=== PATIENT | female | born 1950 | race Two or more races ===

== ENCOUNTER 2021-08-29 06:10 | Day surgery (SDC) | payer OTHER | END 2021-08-29 11:30 | disposition home or self-care (01) | LOC: AMB-ENDOS 06:10 | PROVIDERS: ATTEND Colon & Rectal Surgery | DX: D12.2 Benign neoplasm of ascending colon (principal); D12.3 Benign neoplasm of transverse colon; Z86.010 Personal history of colon polyps; E78.5 Hyperlipidemia, unspecified; I10 Essential (primary) hypertension; Z91.041 Radiographic dye allergy status; Z20.822 Contact with and (suspected) exposure to COVID-19 ==

== ENCOUNTER → 2022-09-22 | Emergency (ER) | payer OTHER ==
[~2022-09-22] VITALS: Ht 180.3 cm; Wt 74.8 kg
[~2022-09-22] MED LIST: COZAAR25 MG PO; HYDROCHLOROTHIA25 MG PO
== END | disposition home or self-care (01) ==
LOC: ER 18:10
DX: S40.011A Contusion of right shoulder, initial encounter (principal); S20.219A Contusion of unspecified front wall of thorax, initial encounter; W18.30XA Fall on same level, unspecified, initial encounter; Y93.9 Activity, unspecified; Y92.9 Unspecified place or not applicable; Y99.9 Unspecified external cause status; Z88.8 Allergy status to other drugs, medicaments and biological substances; Z91.013 Allergy to seafood; I10 Essential (primary) hypertension; M75.51 Bursitis of right shoulder

== ENCOUNTER 2025-01-09 09:48 | Emergency (ER) | payer OTHER ==
[~2025-01-09] VITALS: Ht 152.4 cm; Wt 76.2 kg
== END 2025-01-09 11:02 | disposition home or self-care (01) ==
LOC: ER 10:03
DX: H61.21 Impacted cerumen, right ear (principal); Z91.041 Radiographic dye allergy status; Z91.013 Allergy to seafood; I10 Essential (primary) hypertension